=== PATIENT | male | born 1995 | race Caucasian/White ===

== ENCOUNTER 2023-09-27 08:00 | Emergency (ER) | payer SELFPAY ==
[~2023-09-27] VITALS: Ht 165.1 cm; Wt 77.0 kg
[2023-09-27 08:06] VITALS: O2SAT 100
[2023-09-27] MEDS: IBUPROFEN 400MG TABLET PO ONE (08:35)
[2023-09-27] MEDS ORDERED: IBUP-2028 PO (08:55)
[2023-09-27 09:04] VITALS: BP 127/83; PULSE 55; RESP 18; TEMP 97.9
== END 2023-09-27 09:04 | disposition home or self-care (01) ==
LOC: ER 08:00
DX: M54.2 Cervicalgia (principal); V49.9XXA Car occupant (driver) (passenger) injured in unspecified traffic accident, initial encounter; Y93.89 Activity, other specified; Y92.89 Other specified places as the place of occurrence of the external cause; Y99.8 Other external cause status
CPT/HCPCS: 99283